=== PATIENT | male | born 1980 | race African-American/Black ===

== ENCOUNTER 2020-11-17 11:33 | Emergency (ER) | payer BC, SELFPAY ==
--- NOTE | ~2020-11-17 | XR_ITS ---
EXAMINATION: XR ankle LT min 3V EXAM DATE: 11/17/2020 12:14 INDICATION: Initial encounter following injury, with pain of the left ankle. TECHNIQUE: Left ankle frontal, lateral and oblique projections obtained and reviewed. There is no pr ior study for comparison. FINDINGS: The left ankle mortise appears intact. There are no acute fractures or dislocations ident ified. There is no subcutaneous gas. The soft tissue is unremarkable. Intact fibular plate with s upporting screws bridging a healed fibular fracture. IMPRESSION: No acute osseous findings. Reviewed, dictated and finalized at location A. IMPRESSION: No acute osseous findings.
[2020-11-17 11:36] VITALS: BP 184/104; PULSE 98; RESP 18; TEMP 36.1; O2SAT 100
--- NOTE | 2020-11-17 12:47 | ED_ITS ---
HPI - Extremity Injury (Lower) General Chief Complaint: Extremity Injury, Lower Stated Complaint: left ankle injury Time Seen by Provider: 11/17/20 11:47 History of Present Illness HPI Narrative: Patient is a 40-year-old male who presents ER with left ankle pain. Reports she was walking on 11/13/2020 when he stepped off a curb and injured his ankle. The next day when he woke up he was having some achiness along the lateral aspect. That pain is improved with compression and anti-infl ammatories but he is now started having pain along the medial aspect of his ankle. Occasionally gets a sharp shooting pain up his leg. No chest pain or shortness of breath. No swelling. Denies fevers or chills or sweats. Review of Systems Constitutional: Constitutional: Denies chills and Denies fever(s) Musculoskeletal: Musculoskeletal: Reports arthralgias, Denies joint swelling and Denies muscle cramps Neurologic: Denies focal weakness and Denies numbness PMFSH Past Medical History Medical History (Updated 11/17/20 @ 12:54 by Arsen Brunner MD) No pertinent past medical history Surgical History Surgical History (Updated 11/17/20 @ 12:54 by Arsen Brunner MD) History of ankle surgery Social History Social History (Updated 11/17/20 @ 12:54 by Arsen Brunner MD) Social History: Occasional wine Exam Narrative: Exam Narrative: GENERAL: Well-appearing, well-nourished, and in no acute distress. HEAD: Normocephalic, atraumatic. EXTREMITIES: Focused exam of the left lower extremity shows scarring over the ankle. No reproducible tenderness. Patient points posterior tibial region for source of pain but it cannot be reproduced. Limited range of motion due to previous ankle surgery but patient reports its normal for him. Normal dorsalis pedis and posterior tibial pulses. SKIN: Warm, dry, no rash. NEURO: Alert and oriented x3. PSYCH: Normal mood and affect. Course Course Emergency Course: Informed of results. Discussed conservative therapy. Discharge home. Vital Signs Vital signs: Vital Signs Temperature 97.0 F L 11/17/20 11:36 Pulse Rate 98 11/17/20 11:36 Respiratory Rate 18 11/17/20 11:36 Blood Pressure 184/104 H 11/17/20 11:36 Pulse Oximetry 100 11/17/20 11:36 Temperature 97.0 F L 11/17/20 11:36 Pulse Rate 98 11/17/20 11:36 Respiratory Rate 18 11/17/20 11:36 Blood Pressure 184/104 H 11/17/20 11:36 Pulse Oximetry 100 11/17/20 11:36 MDM - Extremity Injury (Lower) Imaging Data Radiologist's impression: ITS Impressions Ankle X-Ray 11/17/20 12:22 IMPRESSION: No acute osseous findings. Critical Care Time Critical Care Time Critical Care Time: No Discharge Plan Discharge Clinical Impression: Ankle sprain Patient Disposition: Home, Self-Care Condition: Stable Instructions: Ankle Sprain (ED), Ankle Stirrup Splint (ED), R.I.C.E. Treatment (ED) Additional Instructions: Return to the ER if you suffer new injury. Wear an ankle splint and your compression sleeve to help with your comfort. Take naproxen as needed for pain. Follow-up/Referrals: DIRK,ESTEPHANIE Dejesus M.D. [Primary Care Provider] - 1 Week
== END 2020-11-17 12:55 | disposition home or self-care (01) ==
PROVIDERS: Emergency Provider Emergency Medicine; PCP Family Medicine
DX: S93.402A Sprain of unspecified ligament of left ankle, initial encounter (principal); X50.9XXA Other and unspecified overexertion or strenuous movements or postures, initial encounter
CPT/HCPCS: 73610; 99283